=== PATIENT | female | born 1965 | race Caucasian/White ===

== ENCOUNTER 2019-08-16 23:08 | Inpatient (IN) | payer OTHER ==
[2019-08-17] MEDS ORDERED: SODIUM CHLORIDE 2,177 ML IV ONE (00:06)
--- NOTE | 2019-08-17 01:27 | PDOC ---
Documentation entered by Cheryl Lucero SCRIBE, acting as scribe for Sarah Kennedy MD. Sarah Kennedy MD: This documentation has been prepared by the Da deng Xhesika, SCRIBE, under my direction and personally reviewed by me in its entirety. I confirm that the documentation accurately reflects all work, treatment, procedures, and medical decision making performed by me. Attending Attestation - Resident Resident Name: AleSiri - ED Attending Attestation I have performed the following: I have examined & evaluated the patient, The case was reviewed & discussed with the resident, I agree w/resident's findings & plan, Exceptions are as noted - HPI HPI: 08/17/19 01:20 The patient is a 53 year old female, with a significant past medical history of sarcoidosis (from biopsy, 3yrs ago), who presents to the emergency department with persistent fevers, cough, headache, nausea and blood in urine. Pt was seen here on 08/07/19 for similar symptoms and later that week she was found to be +COVID. She denies any chest pain, shortness of breath, vomiting, or diarrhea. Allergies: Ciprofloxacin HCl, Levofloxacin Past surgical history: . Lithotripsy. Social history: Nonsmoker. Denies EtOH use and recreational drug use. Primary Care Physician: Dr. Mendoza - Physicial Exam PE: 08/17/19 01:25 GENERAL:+Febrile. Well developed, well nourished. Awake and alert. No acute distress. NECK: Supple. Full ROM. No JVD. Carotid pulses 2+ and symmetric, without bruits. No thyromegaly. No lymphadenopathy. CARDIOVASCULAR:+Tachycardic. Regular rhythm. No murmurs, rubs, or gallops. Distal pulses are 2+ and symmetric. PULMONARY: No evidence of respiratory distress. Lungs clear to auscultation bilaterally. No wheezing, rales or rhonchi. ABDOMINAL: Soft. Non-tender. Non-distended. No rebound or guarding. No organomegaly. Normoactive bowel sounds. MUSCULOSKELETAL Normal range of motion at all joints. No bony deformities or tenderness. No CVA tenderness. EXTREMITIES: No cyanosis. No clubbing. No edema. No calf tenderness. SKIN: Warm and dry. Normal capillary refill. No rashes. No jaundice. NEUROLOGICAL: Alert, awake, appropriate. Cranial nerves 2-12 intact. No deficits to light touch and temperature in face, upper extremities and lower extremities. No motor deficits in the in face, upper extremities and lower extremities. Normoreflexic in the upper and lower extremities. PSYCHIATRIC: Cooperative. Good eye contact. Appropriate mood and affect. - Medical Decision Making 08/17/19 02:05 53-year-old female with past medical history of sarcoid who was diagnosed last week positive for coag presents with continuing fever, cough, shortness of breath and states she has hematuria and nausea Patient work-up for dehydration, renal compromise s Patient to receive IV fluids, antiemetics and reassess signed out to Joe 08/21/19 17:34 Discharge - Discharge Information Problems reviewed: Yes Clinical Impression/Diagnosis: Coronavirus infection Condition: Good Disposition: HOME - Follow up/Referral - Patient Discharge Instructions - Post Discharge Activity
--- NOTE | 2019-08-17 01:42 | PDOC ---
History of Present Illness - History of Present Illness Initial Comments: HPI: 53yo F with PMH of sarcoidosis (from biopsy, 3yrs ago) presentings with persistent fevers, chills, cough, headache, nausea and blood in urine. Patient was seen here on 08/07/19 for similar symptoms and later that week she was found to be +COVID-19. Presenting today because she has been feeling very weak. Reports shortness of breath as well as three episodes of hematuria. No chest pain. ROS: Constitutional: +fever, +chills HEENT: no throat pain, no dysphagia Cardiovascular: no chest pain, no palpitations Respiratory: +cough, +shortness of breath Gastrointestinal: no abdominal pain, +nausea Genitourinary: no dysuria, no hematuria Musculoskeletal: no myalgia, no arthralgia Skin: no rash, no itching Neurologic: no headache, +weakness Psych: no agitation, no anxiety PE: General: Awake, alert, and fully oriented, malaise Head: No signs of trauma Eyes: EOMI, sclera anicteric ENT: Moist mucus membranes Neck: Normal ROM, supple Lungs: Lungs clear, Normal breath sounds Cardio: Regular rhythm, S1 and S2 present Abdomen: Soft, nontender Extremities: Normal range of motion, Distal pulses present Skin: Warm, Dry, normal turgor Neurologic: Cranial nerves II through XII grossly intact. Normal speech ED Course/MDM: DDX including but not limited to COVID-19, ACS, PE, PNA, anemia, metabolic derangement Labs, EKG, CXR EKG: rate 118, Qtc 432, sinus 08/17/19 01:42 CBC WBC 6.2 K/mm3 (4.0-10.0) 08/17/19 02:04 RBC 5.09 M/mm3 (3.60-5.2) 08/17/19 02:04 Hgb 14.7 GM/dL (10.7-15.3) 08/17/19 02:04 Hct 41.8 % (32.4-45.2) 08/17/19 02:04 MCV 82.1 fl (80-96) 08/17/19 02:04 MCH 28.9 pg (25.7-33.7) 08/17/19 02:04 MCHC 35.2 g/dl (32.0-36.0) 08/17/19 02:04 RDW 13.0 % (11.6-15.6) 08/17/19 02:04 Plt Count 190 K/MM3 (134-434) 08/17/19 02:04 MPV 8.9 fl (7.5-11.1) 08/17/19 02:04 Absolute Neuts (auto) 5.1 K/mm3 (1.5-8.0) 08/17/19 02:04 Neutrophils % 81.6 % (42.8-82.8) 08/17/19 02:04 Lymphocytes % 11.5 % (8-40) 08/17/19 02:04 Monocytes % 6.6 % (3.8-10.2) 08/17/19 02:04 Eosinophils % 0.0 % (0-4.5) D 08/17/19 02:04 Basophils % 0.3 % (0-2.0) 08/17/19 02:04 Nucleated RBC % 0 % (0-0) 08/17/19 02:04 No leukocytosis or anemia CMP Sodium 135 mmol/L (136-145) L 08/17/19 02:04 Potassium 3.6 mmol/L (3.5-5.1) 08/17/19 02:04 Chloride 103 mmol/L (98-107) 08/17/19 02:04 Carbon Dioxide 24 mmol/L (21-32) 08/17/19 02:04 Anion Gap 8 MMOL/L (8-16) 08/17/19 02:04 BUN 7.5 mg/dL (7-18) 08/17/19 02:04 Creatinine 0.6 mg/dL (0.55-1.3) 08/17/19 02:04 Est GFR (CKD-EPI)AfAm 118.93 08/17/19 02:04 Est GFR (CKD-EPI)NonAf 102.61 08/17/19 02:04 Random Glucose 182 mg/dL (74-106) H 08/17/19 02:04 Calcium 8.2 mg/dL (8.5-10.1) L 08/17/19 02:04 Total Bilirubin 1.2 mg/dL (0.2-1) H 08/17/19 02:04 AST 28 U/L (15-37) 08/17/19 02:04 ALT 33 U/L (13-61) 08/17/19 02:04 Alkaline Phosphatase 92 U/L (45-117) 08/17/19 02:04 Total Protein 7.1 g/dl (6.4-8.2) 08/17/19 02:04 Albumin 3.3 g/dl (3.4-5.0) L 08/17/19 02:04 Electrolytes unremarkable Cr normal No transaminitis 08/17/19 03:[address] Hobbs who accepted patient for admission under Dr. Dukes 08/17/19 05:02 <Siri Aguilera - Last Filed: 08/17/19 18:38> <Sarah Kennedy - Last Filed: 08/21/19 17:33> - General Chief Complaint: SIRS, Suspected/Possible Stated Complaint: FEVER/COUGH Time Seen by Provider: 08/17/19 00:35 Past History - Past Medical History COPD: No Disorders: Yes (KIDNEY STONES) Kidney Stones: Yes - Surgical History Abdominal Surgery: No - Immunization History Immunization Up to Date: Yes - Psycho Social/Smoking Cessation Hx Smoking History: Never smoked Have you smoked in the past 12 months: No Hx Alcohol Use: No Drug/Substance Use Hx: No Substance Use Type: None <Siri Aguilera - Last Filed: 08/17/19 18:38> <Sarah Kennedy - Last Filed: 08/21/19 17:33> - Past Medical History Allergies/Adverse Reactions: Allergies Allergy/AdvReac Type Severity Reaction Status Date / Time ciprofloxacin HCl Allergy Severe Rash Verified 08/16/19 23:27 [From Cipro] levofloxacin [From Levaquin] Allergy Severe Rash Verified 08/16/19 23:27 ciprofloxacin [From Cipro] Allergy Intermediate Rash Verified 08/16/19 23:27 Iodinated Contrast Media Allergy Verified 08/17/19 02:21 Home Medications: Ambulatory Orders Cefpodoxime Proxetil [Vantin (Nf) -] 100 mg PO BID #14 tablet 08/19/19 *Physical Exam - Vital Signs Last Vital Signs Temp Pulse Resp BP Pulse Ox 101.8 F H 134 H 20 140/104 H 96 08/17/19 00:00 08/17/19 00:00 08/17/19 00:00 08/17/19 00:00 08/17/19 00:00 <AleSiri - Last Filed: 08/17/19 18:38> - Vital Signs Last Vital Signs Temp Pulse Resp BP Pulse Ox 98.4 F 96 H 20 144/89 96 08/19/19 13:56 08/19/19 13:56 08/19/19 13:56 08/19/19 13:56 08/19/19 09:00 <Sarah Kennedy - Last Filed: 08/21/19 17:33> ED Treatment Course - LABORATORY CBC & Chemistry Diagram: 08/17/19 13:10 08/17/19 13:10 <Siri Aguilera - Last Filed: 08/17/19 18:38> - LABORATORY CBC & Chemistry Diagram: 08/19/19 05:20 08/19/19 05:20 - ADDITIONAL ORDERS Additional order review: 08/17/19 02:04 RBC 5.09 MCV 82.1 MCHC 35.2 RDW 13.0 MPV 8.9 Neutrophils % 81.6 Lymphocytes % 11.5 Monocytes % 6.6 Eosinophils % 0.0 D Basophils % 0.3 - RADIOLOGY Radiology Studies Ordered: Category Date Time Status CHEST X-RAY PORTABLE* [RAD] Stat Radiology 08/17/19 00:08 Completed - Medications Given in the ED: ED Medications Discontinued Medications Generic Name Dose Route Start Last Admin Trade Name Freq PRN Reason Stop Dose Admin Acetaminophen 650 mg 08/17/19 10:55 08/17/19 11:15 Tylenol - PO 08/17/19 10:56 650 mg ONCE ONE Administration Acetaminophen 650 mg 08/18/19 00:02 08/19/19 06:26 Tylenol - PO 650 mg Q6H PRN Administration PAIN LEVEL 1-5 Enoxaparin Sodium 40 mg 08/18/19 13:45 08/19/19 10:03 Lovenox - SQ 40 mg DAILY EDER Administration Sodium Chloride 2,177 mls @ 1,088.5 mls/hr 08/17/19 00:06 08/17/19 02:13 Normal Saline - 30 ml/kg infuse over 2 hr (2177 ml) 08/17/19 02:05 1,088.5 mls/hr IV Administration ONCE ONE Ceftriaxone Sodium 2 gm/ 100 mls @ 100 mls/hr 08/17/19 10:00 08/19/19 10:03 Dextrose IVPB 100 mls/hr DAILY EDER Administration Azithromycin 500 mg in 250 mls @ 250 mls/hr 08/17/19 10:00 08/17/19 11:00 Zithromax 500mg Ivpb (Pre-Docked) IVPB 250 mls/hr DAILY EDER Administration Insulin Aspart 1 units 08/17/19 07:00 08/19/19 11:18 Novolog Vial SQ Not Given ACHS EDER Protocol Potassium Chloride 40 meq 08/18/19 09:45 08/18/19 09:52 K-Dur - PO 08/18/19 09:46 40 meq ONCE ONE Administration <Sarah Kennedy - Last Filed: 08/21/19 17:33> Discharge - Discharge Information Problems reviewed: Yes - Admission Yes <Siri Aguilera - Last Filed: 08/17/19 18:38> <Sarah Kennedy - Last Filed: 08/21/19 17:33> - Discharge Information Clinical Impression/Diagnosis: Coronavirus infection Condition: Good Disposition: HOME
[2019-08-17 02:42] LABS: VENOUS PC02 29.2 mmHg (38-52); VENOUS PH 7.51 (7.31-7.41)
[2019-08-17 02:47] LABS: BASO % 0.3 % (0-2.0); HEMATOCRIT 41.8 % (32.4-45.2); HEMOGLOBIN 14.7 GM/dL (10.7-15.3); LYMPH % 11.5 % (8-40); MCH 28.9 pg (25.7-33.7); MCHC 35.2 g/dl (32.0-36.0); MEAN CELL VOLUME 82.1 fl (80-96); MEAN PLT VOLUME 8.9 fl (7.5-11.1); MONO % 6.6 % (3.8-10.2); NEUT % 81.6 % (42.8-82.8); PLATELET COUNT 190 K/MM3 (134-434); RBC 5.09 M/mm3 (3.60-5.2); WHITE BLOOD COUNT 6.2 K/mm3 (4.0-10.0)
[2019-08-17 03:05] LABS: INR 1.13 (0.83-1.09); PROTHROMBIN TIME (PATIENT) 13.4 SEC (9.7-13.0)
[2019-08-17 03:08] LABS: ACTIVATED PTT 33.9 SECONDS (25.2-36.5)
[2019-08-17 03:19] LABS: ALBUMIN 3.3 g/dl (3.4-5.0); BILIRUBIN,TOTAL 1.2 mg/dL (0.2-1); BLOOD UREA NITROGEN 7.5 mg/dL (7-18); CALCIUM 8.2 mg/dL (8.5-10.1); CREATININE 0.6 mg/dL (0.55-1.3); POTASSIUM 3.6 mmol/L (3.5-5.1); TOT PROT 7.1 g/dl (6.4-8.2)
--- NOTE | 2019-08-17 04:11 | PN ---
Teaching Attending Note Name of Resident: Francisco Hobbs ATTENDING PHYSICIAN STATEMENT I saw and evaluated the patient. I reviewed the resident's note and discussed the case with the resident. I agree with the resident's findings and plan as documented. SUBJECTIVE: 53yo F with PMH of sarcoidosis (from biopsy, 3yrs ago) c/o persistent fevers, chills, cough, headache, nausea. Patient presented on 08/07/2019 with similar complaints and was found to be covi19 positive at that time and is now returning because she was feeling increasingly weak and short of breath. Denied any significant chest pain. Patient denies any recent travels or sick contacts. OBJECTIVE: Last Vital Signs Temp Pulse Resp BP Pulse Ox 100.5 F H 110 H 20 140/104 H 95 08/17/19 04:01 08/17/19 04:01 08/17/19 04:01 08/17/19 00:00 08/17/19 04:01 On physical exam patient appears ill however nontoxic. Head was atraumatic, normocephalic. Neck was supple. Chest was clear to auscultation bilaterally. Cardiovascular exam was S1, S2 with regular rate and rhythm. Abdomen was soft, nontender. Lower extremities with no pedal edema.Skin with no rashes appreciated. Abnormal Lab Results 08/17/19 08/17/19 08/17/19 02:04 02:04 02:04 PT with INR 13.40 H INR 1.13 H VBG pH 7.51 H POC VBG pCO2 29.2 L POC VBG pO2 144 H VBG O2 Sat (Delta) 99.3 H Sodium 135 L Random Glucose 182 H Calcium 8.2 L Total Bilirubin 1.2 H Albumin 3.3 L Chest x-ray reviewed ASSESSMENT AND PLAN: 53-year-old Immunocompromised woman with uncontrolled hyperglycemia and with sepsis secondary to Covid 19 and possible superimposed community-acquired pneumonia. Confirmed covid19 on PCR from 08/07/2019 Admit to [facility] [place] Blood cultures Sputum culture Urine Legionella antigen Urine strep antigen Ceftriaxone and azithromycin Supplemental oxygen via nasal cannula Contact and airborne isolation Infectious disease consult Avoid excessive IV fluid hydration NovoLog sliding scale for hyperglycemia Heparin subcutaneously for DVT prophylaxis
--- NOTE | 2019-08-17 04:13 | HP ---
CHIEF COMPLAINT: cough, sob, valenzuela and fever PCP: Dr. Shelbi Mendoza HISTORY OF PRESENT ILLNESS: 53 y/o female PMH sarcoidosis and covid-19 positive c/o continued cough, valenzuela, and fever seen here 07 August 2019 presents today for increasing SOB. When last seen she was tested for covid-19 and told to quaratine but has since tested positive for Covid-19. She describes unilateral RIGHT sided VALENZUELA. VALENZUELA is made worse with cough, better with rest. It is characterized by pressure. She denies vision changes or numbness/tingling. The cough is dry and non-productive. She also c/o nausea but has no episodes of emesis. She also experienced intermittent chills. She has not attempted any new meds/herbs, drugs/supplements. She denies sick contacts or recent travel. She also reports 3 days of vaginal bleeding. She says this has never happened before. She says that she notes manager aviation spotting. She has not had menses in many years. She denies post-coital bleeding. She denies hematochezia. Family history: denies Surgical history: denies Social history: never cigarette smoker, denies etoh use, denies recreational drug use. 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 Lives alone with adult son; son now has VALENZUELA but no other symptoms. PAST MEDICAL HISTORY: Allergies: ciprofloxacin HCl [From Cipro] Allergy (Severe, Verified 08/16/19 23:27), Rash, PEELING. Levofloxacin [From Levaquin] Allergy (Severe, Verified 08/16/19 23:27) Rash, PEELING. ciprofloxacin [From Cipro] Allergy (Intermediate, Verified 08/16/19 23:27) Rash. Iodinated Contrast Media Allergy (Verified 08/17/19 02:21) HOME MEDICATIONS: Medication Instructions Recorded NK [No Known Home Medication] 08/07/19 REVIEW OF SYSTEMS CONSTITUTIONAL: Absent: fever, chills, diaphoresis, generalized weakness, malaise, loss of appetite, weight change HEENT: Absent: rhinorrhea, nasal congestion, throat pain, throat swelling, difficulty swallowing, mouth swelling, ear pain, eye pain, visual changes CARDIOVASCULAR: Absent: chest pain, syncope, palpitations, irregular heart rate, lightheadedness, peripheral edema RESPIRATORY: Absent: cough, shortness of breath, dyspnea with exertion, orthopnea, wheezing, stridor, hemoptysis GASTROINTESTINAL: Absent: abdominal pain, abdominal distension, nausea, vomiting, diarrhea, constipation, melena, hematochezia GENITOURINARY: Absent: dysuria, frequency, urgency, hesitancy, hematuria, flank pain, genital pain MUSCULOSKELETAL: Absent: myalgia, arthralgia, joint swelling, back pain, neck pain SKIN: Absent: rash, itching, pallor HEMATOLOGIC/IMMUNOLOGIC: Absent: easy bleeding, easy bruising, lymphadenopathy, frequent infections ENDOCRINE: Absent: unexplained weight gain, unexplained weight loss, heat intolerance, cold intolerance NEUROLOGIC: Absent: headache, focal weakness or paresthesias, dizziness, unsteady gait, seizure, mental status changes, bladder or bowel incontinence PSYCHIATRIC: Absent: anxiety, depression, suicidal or homicidal ideation, hallucinations. PHYSICAL EXAMINATION Vital Signs - 24 hr 08/16/19 08/17/19 08/17/19 23:25 00:00 04:01 Temperature 101.8 F H 101.8 F H 100.5 F H Pulse Rate 132 H 134 H Pulse Rate [ 110 H Radial] Respiratory 20 20 20 Rate Blood Pressure 140/104 H 140/104 H O2 Sat by Pulse 96 96 95 Oximetry (%) GENERAL: AO x3 NAD, Irish speaking HEAD: NCAT EYES: SARA, EOMI, sclera anicteric, mild conjunctival injection BL. No ptosis. ENT: Ears normal, nares patent, oropharynx clear without exudates, moist mucous membranes. NECK: Trachea midline, full range of motion, supple. LUNGS: CTAB , no wheezes, fine crackles at bases BL, no accessory muscle use. HEART: RRR, S1, S2 without murmur, rub or gallop. ABDOMEN: Soft, nontender, nondistended, normoactive bowel sounds, no guarding, no rebound, no hepatosplenomegaly, no masses. Bashir, Jain, Rovsing, obturator sign NEG. EXTREMITIES: 2+ pulses, warm, well-perfused, no edema. NEUROLOGICAL: Cranial nerves II through XII grossly intact. Strength 5/5 in UE and LE in both distal and proximal flexors. Brachial reflex 2+ BL. Patellar reflex 2+ BL. PSYCH: Normal mood, normal affect. SKIN: Warm, dry, normal turgor, no rashes or lesions noted Laboratory Results - last 24 hr 08/17/19 08/17/19 08/17/19 02:04 02:04 02:04 WBC 6.2 RBC 5.09 Hgb 14.7 Hct 41.8 MCV 82.1 MCH 28.9 MCHC 35.2 RDW 13.0 Plt Count 190 MPV 8.9 Absolute Neuts (auto) 5.1 Neutrophils % 81.6 Lymphocytes % 11.5 Monocytes % 6.6 Eosinophils % 0.0 D Basophils % 0.3 Nucleated RBC % 0 PT with INR 13.40 H INR 1.13 H PTT (Actin FS) 33.9 VBG pH POC VBG pCO2 POC VBG pO2 VBG HCO3 VBG O2 Sat (Delta) VBG Base Excess Sodium Potassium Chloride Carbon Dioxide Anion Gap BUN Creatinine Est GFR (CKD-EPI)AfAm Est GFR (CKD-EPI)NonAf Random Glucose Lactic Acid Calcium Total Bilirubin AST ALT Alkaline Phosphatase Troponin I < 0.02 Total Protein Albumin 08/17/19 08/17/19 08/17/19 02:04 02:04 02:04 WBC RBC Hgb Hct MCV MCH MCHC RDW Plt Count MPV Absolute Neuts (auto) Neutrophils % Lymphocytes % Monocytes % Eosinophils % Basophils % Nucleated RBC % PT with INR INR PTT (Actin FS) VBG pH 7.51 H POC VBG pCO2 29.2 L POC VBG pO2 144 H VBG HCO3 23.0 VBG O2 Sat (Delta) 99.3 H VBG Base Excess 1.4 Sodium 135 L Potassium 3.6 Chloride 103 Carbon Dioxide 24 Anion Gap 8 BUN 7.5 Creatinine 0.6 Est GFR (CKD-EPI)AfAm 118.93 Est GFR (CKD-EPI)NonAf 102.61 Random Glucose 182 H Lactic Acid 0.9 Calcium 8.2 L Total Bilirubin 1.2 H AST 28 ALT 33 Alkaline Phosphatase 92 Troponin I Total Protein 7.1 Albumin 3.3 L ASSESSMENT/PLAN: 53 y/o female PMH sarcoidosis and covid-19 positive c/o continued cough, valenzuela, and fever, admitted for care of covid-19. # Sepsis 2/2 Covid-19 - Ceftriaxone, azithromycin - Blood culture, urine culture, sputum culture - Urine legionella/strep - ID consult - Contact, droplet, airborne precaution - Supplemental oxygen to maintain o2 above 90% # Sarcoidosis - Pt reports she is not on steroids # FEN - PO - Cont. to monitor - DM diet # DVT ppx - SCD given h/o vaginal bleeding # Disposition - Admit to med/surg Francisco Hobbs MD Visit type - Emergency Visit Emergency Visit: Yes ED Registration Date: 08/17/19 Care time: The patient presented to the Emergency Department on the above date and was hospitalized for further evaluation of their emergent condition. - New Patient This patient is new to me today: Yes Date on this admission: 08/24/19 - Critical Care Critical Care patient: No ATTENDING PHYSICIAN STATEMENT I saw and evaluated the patient. I reviewed the resident's note and discussed the case with the resident. I agree with the resident's findings and plan as documented. SUBJECTIVE: OBJECTIVE: ASSESSMENT AND PLAN:
[2019-08-17] MEDS: INSULIN (NOVOLOG) ASPART 100 UNITS/ML 10ML VIAL SQ SCH ×4 (09:30→23:44)
[2019-08-17] MEDS: CEFTRIAXONE 2 GM in DEXTROSE 5%-WATER 100 ML IVPB SCH (09:30)
[2019-08-17] MEDS ORDERED: AZITHROMYCIN IVPB 500 MG/250 ML BAG IVPB SCH (10:00)
--- NOTE | 2019-08-17 10:15 | EKG ---
Test Reason : Blood Pressure : / mmHG Vent. Rate : 118 BPM Atrial Rate : 118 BPM P-R Int : 144 ms QRS Dur : 078 ms QT Int : 308 ms P-R-T Axes : 036 034 022 degrees QTc Int : 431 ms SINUS TACHYCARDIA OTHERWISE NORMAL ECG WHEN COMPARED WITH ECG OF 07-AUG-2019 21:39, NO SIGNIFICANT CHANGE WAS FOUND Confirmed by Rich Handley MD ([id number]) on 08/17/2019 10:15:04 AM Referred By: Confirmed By:Rich Handley MD
[2019-08-17] MEDS ORDERED: ACETAMINOPHEN 325 MG TABLET (FP) PO ONE (10:55)
[2019-08-17] MEDS ORDERED: ACETAMINOPHEN 325 MG TABLET (FP) ONE ×2 (10:56→23:37)
[2019-08-17 11:46] LABS: EPI CELLS 22 /uL (0-25.1); HYALINE CASTS 2 /uL (0-3.1); URINE APPEARANCE CLOUDY; URINE BACTERIA ABOVE LINEARITY /uL (0-1359); URINE BILIRUBIN NEGATIVE (NEGATIVE); URINE COLOR YELLOW; URINE GLUCOSE (UA) NEGATIVE (NEGATIVE); URINE KETONE 1+ (NEGATIVE); URINE LEUK ESTERASE NEGATIVE (NEGATIVE); URINE NITRITE POSITIVE (NEGATIVE); URINE PROTEIN TRACE (NEGATIVE); URINE RBC 111 /uL (0-23.9); URINE UROBILINOGEN 0.2 mg/dL (0.2-1.0); URINE WBC 31 /uL (0-25.8)
[2019-08-17 13:38] LABS: BASO % 0.4 % (0-2.0); LYMPH % 17.8 % (8-40); MCH 28.7 pg (25.7-33.7); MCHC 35.3 g/dl (32.0-36.0); MEAN CELL VOLUME 81.4 fl (80-96); MEAN PLT VOLUME 7.9 fl (7.5-11.1); MONO % 8.2 % (3.8-10.2); NEUT % 73.6 % (42.8-82.8); PLATELET COUNT 190 K/MM3 (134-434); RBC 4.54 M/mm3 (3.60-5.2); RDW 12.7 % (11.6-15.6); WHITE BLOOD COUNT 4.8 K/mm3 (4.0-10.0)
[2019-08-17 14:14] LABS: ALBUMIN 2.9 g/dl (3.4-5.0); BILIRUBIN,TOTAL 0.6 mg/dL (0.2-1); BLOOD UREA NITROGEN 9.3 mg/dL (7-18); CALCIUM 8.2 mg/dL (8.5-10.1); CREATININE 0.6 mg/dL (0.55-1.3); MAGNESIUM 1.9 mg/dL (1.8-2.4); PHOSPHOROUS 2.7 mg/dL (2.5-4.9); POTASSIUM 3.2 mmol/L (3.5-5.1); TOT PROT 6.6 g/dl (6.4-8.2)
--- NOTE | 2019-08-17 16:19 | PN ---
Progress Note (short form) - Note Progress Note: ID consult dictated covid19 positive 08/07/19 reports fevers, dry cough, blood in urine not hypoxic cxray not impressive for pneumonia ?uti would continue ceftriaxone and f/u cultures maintain isolation for covid 19
[2019-08-17] MEDS: ACETAMINOPHEN 325 MG TABLET (FP) PO PRN (23:30)
[2019-08-18 03:57] VITALS: BMI 32.3
[2019-08-18] MEDS: INSULIN (NOVOLOG) ASPART 100 UNITS/ML 10ML VIAL SQ SCH ×4 (06:50→21:40)
[2019-08-18] MEDS ORDERED: DEXTROSE 5%-WATER 100 ML IVPB ONE (08:44)
[2019-08-18] MEDS: CEFTRIAXONE 2 GM in DEXTROSE 5%-WATER 100 ML IVPB SCH (09:12)
[2019-08-18] MEDS ORDERED: POTASSIUM CHLORIDE TABS 20 MEQ TABLET.ER (FP) PO ONE (09:45)
[2019-08-18] MEDS: ACETAMINOPHEN 325 MG TABLET (FP) PO PRN (09:52)
--- NOTE | 2019-08-18 13:15 | PN ---
Physical Exam: Subjective: Patient seen and examined at bedside, endorses some SOB, otherwise afebrile, will follow up with ID for possible DC home w/ PO abx. Objective: GENERAL: AAox3, speaking in full sentences, NAD HEAD: NC/AT EYES: SARA, EOMI, sclera anicteric, mild conjunctival injection BL. No ptosis. ENT: Ears normal, nares patent, oropharynx clear without exudates, moist mucous membranes. NECK: Trachea midline, full range of motion, supple. LUNGS: coarse b/l BS, no accessory M use HEART: RRR, S1, S2 without murmur, rub or gallop. ABDOMEN: Soft, NT, ND, BS+, obese EXTREMITIES: 2+ pulses, warm, well-perfused, no edema. PSYCH: Normal mood, normal affect. SKIN: Warm, dry, normal turgor, no rashes or lesions noted Vital Signs - 24 hr 08/17/19 08/17/19 08/17/19 15:00 18:00 23:45 Temperature 98.2 F 98.7 F 101.2 F H Pulse Rate 104 H Pulse Rate [ 95 H 122 H Radial] Respiratory 24 H 20 20 Rate Blood Pressure 146/85 Blood Pressure 140/88 166/109 H [Right Arm] O2 Sat by Pulse 95 95 Oximetry (%) 08/18/19 08/18/19 08/18/19 01:37 03:49 03:54 Temperature 98.2 F Pulse Rate 110 H Pulse Rate [ 122 H Radial] Respiratory 19 19 20 Rate Blood Pressure 156/92 Blood Pressure 154/98 [Right Arm] O2 Sat by Pulse 96 97 Oximetry (%) 08/18/19 08/18/19 08/18/19 06:35 08:09 08:12 Temperature 98.8 F 98.8 F Pulse Rate 105 H 102 H Pulse Rate [ Radial] Respiratory 20 20 20 Rate Blood Pressure 145/88 149/82 Blood Pressure [Right Arm] O2 Sat by Pulse 97 Oximetry (%) Microbiology 08/17/19 11:20 Urine - Urine Clean Catch Urine Culture - Preliminary Lactose Fermenting Neg Bacilli Laboratory Results - last 24 hr 08/17/19 08/17/19 08/17/19 13:10 13:10 13:10 WBC 4.8 RBC 4.54 Hgb 13.0 Hct 37.0 MCV 81.4 MCH 28.7 MCHC 35.3 RDW 12.7 Plt Count 190 MPV 7.9 D Absolute Neuts (auto) 3.6 Neutrophils % 73.6 Lymphocytes % 17.8 D Monocytes % 8.2 Eosinophils % 0.0 Basophils % 0.4 Nucleated RBC % 0 Sodium 137 Potassium 3.2 L Chloride 104 Carbon Dioxide 26 Anion Gap 7 L BUN 9.3 Creatinine 0.6 Est GFR (CKD-EPI)AfAm 118.93 Est GFR (CKD-EPI)NonAf 102.61 POC Glucometer Random Glucose 189 H Hemoglobin A1c % 7.5 H Calcium 8.2 L Phosphorus 2.7 Magnesium 1.9 Total Bilirubin 0.6 AST 22 ALT 29 Alkaline Phosphatase 84 Total Protein 6.6 Albumin 2.9 L 08/17/19 08/17/19 08/18/19 17:57 23:41 06:31 WBC RBC Hgb Hct MCV MCH MCHC RDW Plt Count MPV Absolute Neuts (auto) Neutrophils % Lymphocytes % Monocytes % Eosinophils % Basophils % Nucleated RBC % Sodium Potassium Chloride Carbon Dioxide Anion Gap BUN Creatinine Est GFR (CKD-EPI)AfAm Est GFR (CKD-EPI)NonAf POC Glucometer 117 169 134 Random Glucose Hemoglobin A1c % Calcium Phosphorus Magnesium Total Bilirubin AST ALT Alkaline Phosphatase Total Protein Albumin 08/18/19 11:18 WBC RBC Hgb Hct MCV MCH MCHC RDW Plt Count MPV Absolute Neuts (auto) Neutrophils % Lymphocytes % Monocytes % Eosinophils % Basophils % Nucleated RBC % Sodium Potassium Chloride Carbon Dioxide Anion Gap BUN Creatinine Est GFR (CKD-EPI)AfAm Est GFR (CKD-EPI)NonAf POC Glucometer 164 Random Glucose Hemoglobin A1c % Calcium Phosphorus Magnesium Total Bilirubin AST ALT Alkaline Phosphatase Total Protein Albumin Home Medications Medication Instructions Recorded NK [No Known Home Medication] 08/07/19 Current Medications Generic Name Dose Route Start Last Admin Trade Name Freq PRN Reason Stop Dose Admin Acetaminophen 650 mg 08/18/19 00:02 08/18/19 09:52 Tylenol - PO 650 mg Q6H PRN Administration PAIN LEVEL 1-5 Ceftriaxone Sodium 2 gm/ 100 mls @ 100 mls/hr 08/17/19 10:00 08/18/19 09:12 Dextrose IVPB 100 mls/hr DAILY EDER Administration Insulin Aspart 1 units 08/17/19 07:00 08/18/19 11:34 Novolog Vial SQ Not Given ACHS EDER Protocol A/P: 53 F h/o sarcoidosis (not on steroids) and COVID-19 positive (08/07/2019) c/o continued cough, VALENZUELA, and fever, admitted for possible sequale of COVID-19 infection. COVID-19 infection stable, spiked fever yesterday, still c/o mild SOB which will take time to improve feeling betetr overall, ?DC Will discuss with ID Sarcoidosis not in acute exacerbation hold off on steroids UTI follow cx cont. IV ceftriaxone ?transition to PO and DC and adjust abx accordingly dicsuss with ID DVT ppx: heparin SC Isolation precaution Visit type - Emergency Visit Emergency Visit: Yes ED Registration Date: 08/17/19 Care time: The patient presented to the Emergency Department on the above date and was hospitalized for further evaluation of their emergent condition. - New Patient This patient is new to me today: Yes Date on this admission: 08/18/19 - Critical Care Critical Care patient: No - Discharge Referral Referred to [facility] No
[2019-08-18] MEDS: ENOXAPARIN NA (PORCINE) 40 MG/0.4 ML DISP.SYRIN SQ SCH (13:54)
[2019-08-19] MEDS: INSULIN (NOVOLOG) ASPART 100 UNITS/ML 10ML VIAL SQ SCH ×2 (06:23→11:18)
[2019-08-19] MEDS: ACETAMINOPHEN 325 MG TABLET (FP) PO PRN (06:26)
[2019-08-19 07:21] LABS: BASO % 0.6 % (0-2.0); EOS % 0.7 % (0-4.5); HEMATOCRIT 38.1 % (32.4-45.2); HEMOGLOBIN 13.5 GM/dL (10.7-15.3); LYMPH % 27.6 % (8-40); MCH 28.8 pg (25.7-33.7); MCHC 35.3 g/dl (32.0-36.0); MEAN CELL VOLUME 81.5 fl (80-96); MEAN PLT VOLUME 8.5 fl (7.5-11.1); MONO % 12.3 % (3.8-10.2); NEUT % 58.8 % (42.8-82.8); PLATELET COUNT 247 K/MM3 (134-434); RBC 4.67 M/mm3 (3.60-5.2); RDW 12.8 % (11.6-15.6); WHITE BLOOD COUNT 3.6 K/mm3 (4.0-10.0)
[2019-08-19 07:59] LABS: ALBUMIN 2.9 g/dl (3.4-5.0); BILIRUBIN,TOTAL 0.7 mg/dL (0.2-1); CALCIUM 8.4 mg/dL (8.5-10.1); CREATININE 0.6 mg/dL (0.55-1.3); POTASSIUM 3.7 mmol/L (3.5-5.1); TOT PROT 6.6 g/dl (6.4-8.2)
[2019-08-19] MEDS ORDERED: DEXTROSE 5%-WATER 100 ML IVPB ONE (10:01)
[2019-08-19] MEDS: CEFTRIAXONE 2 GM in DEXTROSE 5%-WATER 100 ML IVPB SCH (10:03)
[2019-08-19] MEDS: ENOXAPARIN NA (PORCINE) 40 MG/0.4 ML DISP.SYRIN SQ SCH (10:03)
[2019-08-19] MEDS ORDERED: CEFPODOXIME PROXETIL 100 MG TABLET PO ONE (13:21)
[2019-08-19 13:57] VITALS: BP 144/89; PULSE 96; TEMP 98.4
== END 2019-08-19 15:42 | disposition home or self-care (01) | DRG 722 ==
LOC: JER 23:08 → JERBED 08-17 04:19 → J4W 08-18 02:50
PROVIDERS: ADMIT Internal Medicine
DX: R50.9 Fever, unspecified (principal); B97.29 Other coronavirus as the cause of diseases classified elsewhere; D86.9 Sarcoidosis, unspecified; N39.0 Urinary tract infection, site not specified; B96.1 Klebsiella pneumoniae [K. pneumoniae] as the cause of diseases classified elsewhere; R05 Cough; R51 Headache; R31.9 Hematuria, unspecified
CPT/HCPCS: 36415; 71045-TC-FY; 80053; 81003; 82803; 82962; 83036; 83605; 83735; 84100; 84484; 85025; 85610; 85730; 87040; 87070; 87086; 87186; 87205; 93005; 93010; 99285-25; J7030

== ENCOUNTER 2020-06-28 13:41 | Emergency (ER) | payer OTHER ==
[2020-06-28 14:07] VITALS: BP 161/94; PULSE 96; TEMP 97.2; BMI 28.9
[2020-06-28] MEDS ORDERED: ACETAMINOPHEN 500 MG TABLET (FP) PO ONE (14:27)
[2020-06-28] MEDS ORDERED: ACETAMINOPHEN 500 MG TABLET (FP) ONE (14:55)
[2020-06-28] MEDS ORDERED: IBUPROFEN 600 MG TABLET (FP) PO ONE ×2 (17:09→17:12)
[2020-06-28 18:09] LABS: EPI CELLS 7 /uL (0-25.1); HYALINE CASTS 6 /uL (0-3.1); PH,URINE 5.5 (5.0-8.0); URINE APPEARANCE CLOUDY; URINE BILIRUBIN 1+ (NEGATIVE); URINE COLOR DK YELLOW; URINE GLUCOSE (UA) NEGATIVE (NEGATIVE); URINE KETONE TRACE (NEGATIVE); URINE LEUK ESTERASE 1+ (NEGATIVE); URINE NITRITE NEGATIVE (NEGATIVE); URINE PROTEIN 1+ (NEGATIVE); URINE RBC 63 /uL (0-23.9); URINE UROBILINOGEN 0.2 mg/dL (0.2-1.0); URINE WBC 201 /uL (0-25.8)
[2020-06-28 18:55] LABS: URINE BACTERIA MANY /uL (0-1359); URINE CRYSTALS MODERATE /hpf
== END 2020-06-28 17:15 | disposition home or self-care (01) ==
LOC: JER 13:41
DX: M54.5 Low back pain (principal)
CPT/HCPCS: 81003; 87086; 87186; 99283-25; C9803; U0003

== ENCOUNTER 2022-03-12 14:55 | Emergency (ER) | payer OTHER ==
[2022-03-12 15:16] VITALS: BP 144/90; PULSE 95; RESP 18; TEMP 98.2; BMI 27.1
[2022-03-12] MEDS ORDERED: ACETAMINOPHEN 500 MG TABLET (FP) PO ONE (15:49)
[2022-03-12] MEDS ORDERED: ACETAMINOPHEN 325 MG TABLET (FP) ONE (16:03)
[2022-03-12] MEDS ORDERED: oxyCODONE HCL 5 MG TABLET ONE (18:07)
[2022-03-12] MEDS ORDERED: oxyCODONE HCL 5 MG TABLET PO ONE (18:09)
== END 2022-03-12 20:22 | disposition home or self-care (01) ==
LOC: JERFT 14:55
DX: S52.122A Displaced fracture of head of left radius, initial encounter for closed fracture (principal); W01.0XXA Fall on same level from slipping, tripping and stumbling without subsequent striking against object, initial encounter
CPT/HCPCS: 70486-TC; 73060-TC-LT-FY; 73070-TC-LT-FY; 73090-TC-LT-FY; 99284-25

== ENCOUNTER 2023-04-21 08:59 | Emergency (ER) | payer OTHER ==
[2023-04-21 09:22] VITALS: RESP 18; BMI 26.8
[2023-04-21] MEDS ORDERED: LIDOCAINE 5% TOPICAL PATCH TP ONE (11:14)
[2023-04-21] MEDS ORDERED: ACETAMINOPHEN 325 MG TABLET (FP) PO ONE (11:15)
[2023-04-21] MEDS ORDERED: ACETAMINOPHEN 325 MG TABLET (FP) ONE (11:19)
[2023-04-21] MEDS ORDERED: LIDOCAINE 4% PATCH TP ONE ×2 (11:19→11:21)
[2023-04-21 11:42] LABS: PH,URINE 6.5 (5.0-8.0); URINE APPEARANCE CLEAR; URINE BILIRUBIN NEGATIVE (NEGATIVE); URINE COLOR YELLOW; URINE GLUCOSE (UA) 3+ (NEGATIVE); URINE KETONE TRACE (NEGATIVE); URINE LEUK ESTERASE NEGATIVE (NEGATIVE); URINE NITRITE NEGATIVE (NEGATIVE); URINE PROTEIN NEGATIVE (NEGATIVE); URINE UROBILINOGEN 0.2 mg/dL (0.2-1.0)
[2023-04-21 12:23] LABS: BASO % 0.8 % (0-2.0); EOS % 1.2 % (0-4.5); HEMATOCRIT 49.8 % (32.4-45.2); HEMOGLOBIN 17.4 GM/dL (10.7-15.3); LYMPH % 25.3 % (8-40); MCH 29.1 pg (25.7-33.7); MEAN CELL VOLUME 83.2 fl (80-96); MEAN PLT VOLUME 8.7 fl (7.5-11.1); MONO % 4.6 % (3.8-10.2); NEUT % 68.1 % (42.8-82.8); PLATELET COUNT 228 10^3/uL (134-434); RBC 5.98 M/mm3 (3.60-5.2); RDW 13.4 % (11.6-15.6); WHITE BLOOD COUNT 5.7 K/mm3 (4.0-10.0)
[2023-04-21 12:45] LABS: POTASSIUM 4.2 mmol/L (3.5-5.1)
[2023-04-21 12:47] LABS: BLOOD UREA NITROGEN 10.1 mg/dL (7-18); CALCIUM 9.4 mg/dL (8.5-10.1)
[2023-04-21 12:48] LABS: ALBUMIN 4.1 g/dl (3.4-5.0)
[2023-04-21 12:50] LABS: CREATININE 0.7 mg/dL (0.55-1.3)
[2023-04-21 12:52] LABS: TOT PROT 7.7 g/dl (6.4-8.2)
[2023-04-21 12:53] LABS: BILIRUBIN,TOTAL 1.3 mg/dL (0.2-1)
[2023-04-21 14:43] VITALS: BP 155/86; PULSE 82; TEMP 98.5
[2023-04-21] MEDS ORDERED: LIDOCAINE PATCH REMOVAL MC SCH ×2 (22:00)
== END 2023-04-21 14:20 | disposition home or self-care (01) ==
LOC: JERFT 08:59
DX: M25.511 Pain in right shoulder (principal); M54.50 Low back pain, unspecified; R10.9 Unspecified abdominal pain; B02.23 Postherpetic polyneuropathy
CPT/HCPCS: 36415; 71046-TC-FY; 71101-TC-LT-FY; 80053; 81003; 84484; 85025; 87086; 93005; 93010; 99285-25